=== PATIENT | female | born 1990 | race Caucasian/White ===

== ENCOUNTER 2017-03-22 10:44 | Emergency (ER) | payer OTHER ==
[2017-03-22] MEDS ORDERED: KETOROLAC 60 MG/2 ML VIAL IVP STA (10:56)
[2017-03-22] MEDS ORDERED: diphenhydrAMINE INJ 50 MG/ML VIAL IVP STA (10:56)
[2017-03-22] MEDS ORDERED: PROCHLORPERAZINE 10 MG/2 ML VIAL IVP STA (10:56)
[2017-03-22] MEDS ORDERED: SODIUM CHLORIDE 0.9% 1,000 ML IV ONE (10:56)
--- NOTE | 2017-03-22 10:59 | ED Physician Documentation ---
History of Present Illness - Stated complaint Stated Complaint: VOMITING/DIARRHEA - Chief complaint Chief Complaint: Neuro - Additonal information Additional information: hx from pt 26 y/o f hx migraines in high school today has a REGALADO similar to her prior migraines started with blurry vision in her L eye then gradually progressed into a worsening L sided REGALADO with NV no fever no neck stiffness no numbness or weakness not a thunderclap REGALADO no CO exposure no trauma Review of Systems Constitutional: denies: Fever, Chills Eyes: reports: Photophobia Ears: denies: Loss of hearing Cardiac: denies: Chest pain / pressure Respiratory: denies: Cough GI: reports: Nausea, Vomiting. denies: Abdominal Pain : denies: Now EGA (denies LMP 02/22) Musculoskeletal: denies: Neck pain Neurologic: reports: Headache. denies: Focal weakness, Numbness, Head injury Immunocompromised: denies: Immunocompromised PD PAST MEDICAL HISTORY - Past Medical History Past Medical History: No - Past Surgical History Past Surgical History: No - Present Medications Home Medications: Ambulatory Orders Medication Instructions Recorded Confirmed No Known Home Medications [No 03/22/17 03/22/17 Known Home Medications] - Allergies Allergies/Adverse Reactions: Allergies Allergy/AdvReac Type Severity Reaction Status Date / Time No Known Drug Allergies Allergy Verified 01/21/17 15:44 - Social History Does the pt smoke?: No Smoking Status: Never smoker Does the pt drink ETOH?: No Does the pt have substance abuse?: No - Immunizations Immunizations are current?: Yes Results - Vitals Vitals: Vital Signs - 24 hr 03/22/17 03/22/17 03/22/17 10:48 10:53 11:37 Temperature 35.5 C L 35.5 C L Heart Rate 78 90 69 Respiratory 18 18 16 Rate Blood Pressure 126/63 146/83 H 131/78 H O2 Saturation 100 100 100 Oxygen O2 Source Room air PD MEDICAL DECISION MAKING - ED course ED course: pt felt much better Departure - Departure Disposition: 01 Home, Self Care Clinical Impression: Migraine Qualifiers: Migraine type: unspecified Status migrainosus presence: without status migrainosus Intractability: not intractable Qualified Code(s): G43.909 - Migraine, unspecified, not intractable, without status migrainosus Condition: Good Instructions: ED Headache Migraine Follow-Up: TIMOTHY Le [Provider Group] Comments: Please follow up with your PMD as needed. If you start to get migraines more often, your PMD may want to prescribe medication to prevent or abort migraines Forms: Activity restrictions
[2017-03-22 11:40] VITALS: BP 131/78
== END 2017-03-22 12:33 | disposition home or self-care (01) ==
LOC: ED 10:44
DX: G43.909 Migraine, unspecified, not intractable, without status migrainosus (principal)
CPT/HCPCS: 96361; 96374; 96375; 99283

== ENCOUNTER 2018-11-12 09:11 | Outpatient (CLI) | payer OTHER ==
--- NOTE | 2018-11-12 12:24 | MRI Report ---
Reason: SPONDYLOLISTHESIS LUMBOSACRAL REGION Procedure Date: 11/12/2018 Accession Number: [id number] / [id number] Procedure: MRI - Lumbar Spine W/O CPT Code: FULL RESULT: EXAM: MRI LUMBAR SPINE WITHOUT CONTRAST EXAM DATE: 11/12/2018 10:08 AM. CLINICAL HISTORY: Spondylolisthesis lumbosacral region. COMPARISON: None. TECHNIQUE: Multiplanar, multisequence T1-weighted and fluid-sensitive sequences of the lumbar spine from T12 to S1 without contrast. Other: None. FINDINGS: Spinal Canal: The conus terminates at L1. The conus medullaris and cauda equina are unremarkable. Alignment: No scoliosis or spondylolisthesis. Bone Marrow: Five mrg-yle-bbsocob lumbar vertebral bodies are assumed. No gross fractures or bone lesions. No bone marrow replacement. Disk Levels/Facets: T12-L1: Unremarkable. L1-L2: Unremarkable. L2-L3: Unremarkable. L3-L4: Normal disk, probably facets. No stenosis. L4-L5: There is a mild broad-based disk bulge present, slight indentation of the thecal sac. Prominent facets. No stenosis. L5-S1: Unremarkable. Musculature: Moderate fatty atrophy of the multifidus muscle. Other: The partially visualized retroperitoneum is unremarkable. IMPRESSION: 1. Conus terminates at L1 which is normal. No scoliosis or listhesis is noted. Moderate fatty atrophy of the multifidus muscle is seen. 2. L2-L3 is normal. 3. L3-L4 shows no stenosis, prominent facets and normal disk. 4. L4-L5 shows a mild broad-based disk bulge and slight indentation of ventral thecal sac. No stenosis. 5. L5-S1 is normal. Comment: The following findings are so common in adults without low back pain that while we report their presence, they must be interpreted with caution and in the context of the clinical situation. (Reference [place]vik et al, Spine 2001) Prevalence of findings in patients without low back pain: Disk degeneration (any evidence): 92% Disk desiccation/T2 signal loss: 83% Disk height loss: 56% Disk bulge: 64% Disk protrusion: 32% Annular tear/high intensity zone: 38% RADIA
== END 2018-11-12 09:12 | disposition home or self-care (01) ==
LOC: DI 09:11
PROVIDERS: ATTEND Student in an Organized Health Care Education/Training Program
DX: M54.17 Radiculopathy, lumbosacral region (principal); G12.9 Spinal muscular atrophy, unspecified
CPT/HCPCS: 72148